=== PATIENT | male | born 1990 ===

== ENCOUNTER → 2020-07-14 | Outpatient (CLI) | payer OTHER ==
[~2020-07-14] MED LIST: CIPROFLOXACIN750 MG PO; CLONAZEPAM1 MG PO; DOCUSATE SODIU100 MG PO; GABAPENTIN800 MG PO; LIRICA; LIRICA PO; PERCOCET 5/3251 TAB PO
== END | disposition home or self-care (01) ==
LOC: MRI 09:05
PROVIDERS: ATTEND Orthopaedic Surgery
DX: M51.26 Other intervertebral disc displacement, lumbar region (principal)
CPT/HCPCS: 72148

== ENCOUNTER → 2020-09-18 | Emergency (ER) | payer OTHER ==
[~2020-09-18] VITALS: Ht 185.4 cm; Wt 81.6 kg
[~2020-09-18] MED LIST changes: +CATAFLAN; +NEURONTIN300 MG
== END | disposition left against medical advice (07) ==
LOC: ER 11:33
DX: Z53.20 Procedure and treatment not carried out because of patient's decision for unspecified reasons (principal)

== ENCOUNTER 2021-09-15 14:23 | Emergency (ER) | payer OTHER ==
[~2021-09-15] VITALS: Ht 185.4 cm; Wt 81.6 kg
== END 2021-09-15 16:59 | disposition home or self-care (01) ==
LOC: ER 14:23
DX: M25.531 Pain in right wrist (principal)

== ENCOUNTER → 2022-10-16 12:10 | Outpatient (CLI) | payer OTHER | END | disposition home or self-care (01) | LOC: TOM 12:10 | DX: G43.019 Migraine without aura, intractable, without status migrainosus (principal) ==

== ENCOUNTER 2023-01-09 11:08 | Outpatient (CLI) | payer OTHER | END 2023-01-09 11:30 | disposition home or self-care (01) | LOC: MRI 11:08 | DX: M51.17 Intervertebral disc disorders with radiculopathy, lumbosacral region (principal) | CPT/HCPCS: 72149 ==